=== PATIENT | male | born 1965 | race Caucasian/White ===

== ENCOUNTER → 2024-04-05 11:37 | Outpatient (CLI) | payer OTHER, SELFPAY ==
--- NOTE | 2024-04-05 | DI.RAD.S_ITS ---
PROCEDURE: XR CHEST 2V INDICATIONS: Chronic obstructive pulmonary disease, unspecified TECHNIQUE: 2 views of the chest were acquired. COMPARISON: None. FINDINGS: Surgical changes and devices: None. Lungs and pleura: Right lung is clear. Left lung shows parenchymal scarring or subsegmental atelectasis in the left lung base. No pleural effusions or pneumothorax. Mediastinum: Mediastinal contours are normal. Heart size is normal. Bones and chest wall: Mild scoliosis in the lower thoracic spine.. Soft tissues appear unremarkable. IMPRESSION: Parenchymal scarring or subsegmental atelectasis in the left lung base. Examination is otherwise unremarkable. Dictated by: Prasad High M.D. on 04/05/2024 at 16:28 Approved by: Prasad High M.D. on 04/05/2024 at 16:30
== END ==
LOC: RESP 11:39
PROVIDERS: Referring Provider Chiropractor; Visit Provider Chiropractor
DX: J44.9 Chronic obstructive pulmonary disease, unspecified (principal); F17.210 Nicotine dependence, cigarettes, uncomplicated
CPT/HCPCS: 71046; 94060